=== PATIENT | female | born 1975 | race Caucasian/White ===

== ENCOUNTER 2017-01-13 15:29 | Inpatient (IN) | payer BC ==
[~2017-01-13] VITALS: Ht 170.2 cm; Wt 80.3 kg
[~2017-01-13 15:29] MED LIST: ADAL40PE SQ; CHOL10002 PO; CIPR250S2 PO; LACT1CAP37 PO; MULT-658 PO; OMEG-14 PO; OMEP-110 PO; PANT20TA2 PO
[2017-01-13 15:55] VITALS: BP 159/106
[2017-01-13] MEDS ORDERED: ONDANSETRON 2MG/ML, 2ML ONE (16:09)
[2017-01-13] MEDS ORDERED: ONDANSETRON 2MG/ML, 2ML IVPush PRN ×2 (16:30→18:00)
[2017-01-13] MEDS ORDERED: ERTAPENEM 1 GM in SODIUM CHLORIDE 0.9% 50 ML IV SCH (17:00)
[2017-01-13] MEDS: SODIUM CHLORIDE 0.9% 1,000 ML IV SCH (17:44)
[2017-01-13 17:52] LABS: ASPARTATE AMINO TRANSFERASE 33 U/L (15-37); BLOOD UREA NITROGEN 19 mg/dL (7-18)
[2017-01-13] MEDS ORDERED: hydrALAzine 20 MG/ML, 1ML IVPush PRN (18:00)
[2017-01-13] MEDS ORDERED: morphine SULFATE 10 MG/ML, 1ML IVPush PRN (18:00)
[2017-01-13 20:47] VITALS: BP 160/101
[2017-01-13] MEDS ORDERED: PANTOPRAZOLE 40 MG IV IVPush SCH (21:00)
[2017-01-13] MEDS ORDERED: LORazepam 2 MG/ML, 1ML IVPush ONE (22:30)
[2017-01-13 23:23] VITALS: BP 149/89
[2017-01-14] MEDS: SODIUM CHLORIDE 0.9% 1,000 ML IV SCH (01:30)
[2017-01-14 03:04] VITALS: BP 156/86
[2017-01-14 06:13] LABS: ASPARTATE AMINO TRANSFERASE 21 U/L (15-37); BLOOD UREA NITROGEN 15 mg/dL (7-18)
== END 2017-01-14 07:15 | disposition left against medical advice (07) | DRG 388 ==
LOC: 4NOR 15:29
PROVIDERS: ADMIT Internal Medicine; ATTEND Internal Medicine
DX: K56.60 Unspecified intestinal obstruction (principal); N17.0 Acute kidney failure with tubular necrosis; K50.90 Crohn's disease, unspecified, without complications; R65.10 Systemic inflammatory response syndrome (SIRS) of non-infectious origin without acute organ dysfunction; J45.909 Unspecified asthma, uncomplicated; I10 Essential (primary) hypertension; K21.9 Gastro-esophageal reflux disease without esophagitis; Z90.49 Acquired absence of other specified parts of digestive tract; Z90.710 Acquired absence of both cervix and uterus; Z98.891 History of uterine scar from previous surgery; Z88.8 Allergy status to other drugs, medicaments and biological substances; Z83.79 Family history of other diseases of the digestive system; Z87.442 Personal history of urinary calculi
CPT/HCPCS: 36415; 71010; 80053; 81001; 82247; 82248; 83690; 83735; 84100; 85025; 85610; 87086; 87106; J1335; J2405; C9113; J2060; J7030